=== PATIENT | female | born 1950 | race Asian ===

== ENCOUNTER → 2018-03-22 | Day surgery (SDC) | payer OTHER ==
[~2018-03-22] VITALS: Ht 149.9 cm; Wt 57.6 kg
[~2018-03-22] MED LIST: MULTIVITAMINS1 EAC9 PO
--- NOTE | 2018-03-22 10:19 | Operative Report ---
Operative/Inv Procedure Report Surgery Date: 03/22/18 Name of Procedure: Right shoulder arthroscopy, subacromial decompression, arthroscopic rotator cuff repair, extensive debridement, subpectoral biceps tenodesis Pre-Operative Diagnosis: Right shoulder rotator cuff tear Post-Operative Diagnosis: Right shoulder rotator cuff tear Estimated Blood Loss: scant Surgeon/Financial Operations Consultant: Claudio AMANDA,ANUP Prieto Anesthesia: laryngeal mask airway, block Complications: None Condition: Stable to PACU Operative Indication: This is a 67 showed female with long-standing right shoulder pain that has failed conservative care. MRI showed a full-thickness rotator cuff tear. Risks and benefits of the procedure were discussed with the patient at length. Risks include but are not limited to nerve damage, muscle damage, infection, blood loss, blood clots, pulmonary embolus, and even . The patient agreed to the above risks and elected to proceed with surgery. Operative/Procedure Note Note: The patient was taken to the operating room and placed in the lateral decubitus position with the operative side up after anesthesia was induced. The upper extremity was prepped and draped in the normal sterile fashion. A timeout was performed prior to incision. The site marking was visualized prior to incision. IV antibiotics were given prior to incision. After the upper extremity was prepped and draped a spinal needle was used to insufflate the shoulder joint with saline. An 11 blade was used to incise the skin for the posterior portal placement. The cannula was then placed. The camera was inserted. An anterior portal was established just proximal and lateral to the coracoid with a spinal needle and an 11 blade. The diagnostic arthroscopy was then performed which showed the above findings. A wand was used to tenotomize the biceps tendon. A shaver was used to debride the superior and posterior labrum. The shaver was also used to debride the insertion of the subscapularis tendon. The shaver was then used to debride the rotator cuff footprint to decorticate for later rotator cuff repair. The shaver was used also debrided the undersurface of the supraspinatus and infraspinatus tendons. Next the subacromial space was entered through the posterior portal. A lateral portal was established with a spinal needle and an 11 blade. A blunt probe was inserted through the lateral portal. Next the shaver was inserted and a subacromial bursectomy was performed. Any bleeding vessels were identified and cauterized. The shaver was used to debride any bursal tissue on the undersurface of the acromion and surrounding the humeral head. The coracoacromial ligament was taken down with a wand. Care was taken to protect the rotator cuff tissue and only take bursal tissue. A wand was then used to further take down the soft tissue on the undersurface of the acromion. A bur was then inserted and the acromioplasty was then begun starting at the anterolateral edge of the acromion. This was extended down to the level of the acromioclavicular joint. This was then tapered further posteriorly. An 8 mm PassPort cannula was placed through the lateral portal site. A 6 mm PassPort cannula was placed through the anterior portal. An accessory portal was made just off of the lateral border the acromion with a spinal needle and an 11 blade. An 8 mm PassPort cannula was placed through this. The bur was used to prepare the rotator cuff footprint back to a healthy bed of bleeding bone for later rotator cuff repair. Any bursal adhesions superior to the rotator cuff were taken misbah with a shaver. A tap was used and a 5.5 mm helicoil anchor was placed just lateral to the articular surface in the rotator cuff footprint. An expressew needle was then used to shuttle the sutures from front to back. The medial row was tied down with a locking knot and several half hitches. The sutures were then crisscrossed over the top and fixed with 2 lateral row anchors. An anchor was placed posterior to the bicipital groove. A second anchor was placed further posterior. This afforded excellent compression of the rotator cuff. The excess suture was then cut. A 1/8 inch Hemovac drain was placed through the posterior portal. An incision was then made in the axillary fold. Blunt dissection was performed and the pectoralis major tendon was identified. A Hohmann retractor was inserted deep to this to expose the bicipital groove. The biceps tendon was then delivered from the wound and whipstitched starting at the musculotendinous junction. It extended proximally. The excess tendon was cut. The bicipital groove was then cleared off of any soft tissue. A guidewire was then drilled from an anterior to posterior direction in the groove. A 7 mm reamer was then used over the wire to drill the anterior cortex. A 7 x 10 mm Arthrex peek tenodesis screw was then inserted after the biceps tendon was delivered into the drill hole. The screw was then tightened down flush with the anterior humeral cortex. The sutures were then tied over the top. The excess suture was cut. The wound was copiously irrigated. The skin was closed with 2-0 vicryl suture in a simple interrupted fashion and a running subcuticular 4-0 Monocryl stitch. Dermabond was applied. All instruments were removed and the shoulder was copiously irrigated. The portal sites were closed with 3-0 nylon suture in a simple interrupted fashion. A dry sterile dressing was placed. A sling was applied. The patient was transferred to PACU in stable condition. Findings: Full-thickness tear of the supraspinatus tendon with undersurface tearing of the infraspinatus. Partial tearing of the subscapularis insertion. Unstable SLAP tear with elevation of the biceps root. Degenerative tearing of the posterior labrum. Anterior labrum intact. No loose bodies noted. Glenohumeral articular cartilage with grade 1 chondral softening.
== END ==
LOC: STS 01:13
DX: M75.121 Complete rotator cuff tear or rupture of right shoulder, not specified as traumatic (principal)
CPT/HCPCS: C9290; J0131; J0171; J0690; J2250